=== PATIENT | female | born 1965 | race Caucasian/White ===

== ENCOUNTER 2017-12-25 14:11 | Emergency (ER) | payer SELFPAY ==
[~2017-12-25] VITALS: Ht 162.6 cm; Wt 75.7 kg
[2017-12-25 14:11] VITALS: BP 138/72
[~2017-12-25 14:11] MED LIST: ZOLP5TAB2 PO
--- NOTE | 2017-12-25 14:36 | NUR ---
CALLED THE PT'S PRIMARY DOCTOR TO HAVE THEM SPEAK TO DOCTOR GOINS. UNABLE TO REACH. LEFT VOICEMAIL. WAITING FOR CALLBACK.
--- NOTE | 2017-12-25 15:09 | NUR ---
CALLED DR DONALD @ . LEFT A VOICEMAIL.
== END 2017-12-25 16:16 | disposition home or self-care (01) ==
LOC: ER 14:14
DX: F32.9 Major depressive disorder, single episode, unspecified (principal); F28 Other psychotic disorder not due to a substance or known physiological condition; F60.0 Paranoid personality disorder; F22 Delusional disorders; I10 Essential (primary) hypertension; F41.9 Anxiety disorder, unspecified; Z90.89 Acquired absence of other organs
CPT/HCPCS: 93005; 99284; A4606; Z7610